=== PATIENT | male | born 1950 | race Caucasian/White ===

== ENCOUNTER → 2016-08-21 | Outpatient (CLI) | payer MEDICARE, OTHER ==
[~2016-08-21] MED LIST: AMLODIPINE BESYL5 MG PO; AMOXICILLIN; ASPIRIN ENTERI325 M1 PO; CIPRO; CIPRO PO; FERROUS SULFATE; FISH OIL 1,2001 CAP PO; IBUPROFEN800 MG PO; LIPITOR20 MG DOB; LISINOPRIL10 MG PO; LOSARTAN-HCTZ1 EAC2 PO; LOTENSIN20 MG PO; LOTREL 5-20 MG1 CAP PO; LOTREL 5/10 MG1 CAP; METFORMIN PO; MONTELUKAST SOD10 MG PO; NO MEDICATIONS; PERCOCET5/325 PO; TYLENOL325 M1 PO; TYLOX 5/500 CAP1 CAP; VIBRAMYCIN100 M1 PO; XARELTO15 MG PO
--- NOTE | ~2016-08-21 | US37 ---
[facility]. [facility] A Service of [facility] RADIOLOGY TEXT RESULTS PATIENT: SOIBHAN RAI LOCATION: SNIV : 54 UNIT #: [id number] AGE: [address]: Carlito Ortiz MD SEX: M ORDER DR: [id number] [address] [id number] O MR#: [id number] Acc #: [id number] NAME: SIOBHAN RAI. : 1950 SEX: M STUDY DATE/TIME: 08/21/2016 12:51 UNIT: SNIV ROOM: STUDY DESCRIPTION: US Carotid W/Doppler Bilateral Attending Physician: Carlito Ortiz M.D. Referring Physician: Carlito Ortiz M.D. Ordering Physician: Carlito Ortiz M.D. Primary Care Physician: Carlito Ortiz M.D. MEDICAL IMAGING REPORT This report is preliminary unless electronic signature is present. EXAM Bilateral carotid duplex HISTORY Carotid atherosclerosis. FINDINGS Duplex imaging of the carotid arteries was performed. The right common carotid artery is patent. Minimal plaque is seen in the right internal carotid artery bulb. Velocity in the right common carotid is 18, internal is 76, external is 112 cm/sec. Right ICA/CCA ratio is 1.1. On the left side, the common carotid artery is patent. Internal and external carotid arteries are patent with no plaque. Velocity in the left common carotid is 90, internal is 58 and external is 104 cm/sec. Left ICA/CCA ratio is 0.8. IMPRESSION Small amount of plaque with less than 50% stenosis is seen in the right internal carotid artery. The left internal carotid artery is normal. Antegrade flow is seen in the right and left vertebral arteries. Dictated by... Michael Downey M.D. THIS IS AN ELECTRONICALLY VERIFIED REPORT Mcihael Downey M.D. at 08/22/2016 7:15 AM /hudson TD: 08/22/2016 03:43 [facility] A Service of [facility] & [facility] RADIOLOGY TEXT RESULTS PATIENT: SIOBHAN RAI LOCATION: IV : 52 UNIT #: [id number] AGE: [address]: Carlito Ortiz MD SEX: M ORDER DR: NORA #: [id number] MEDICAL IMAGING REPORT Page 1 of 1
== END | disposition home or self-care (01) ==
LOC: SNIV 12:49
DX: I70.90 Unspecified atherosclerosis (principal); I65.21 Occlusion and stenosis of right carotid artery
CPT/HCPCS: 93880